=== PATIENT | male | born 1990 | race African-American/Black ===

== ENCOUNTER 2016-04-26 06:26 | Emergency (ER) | payer BC ==
[~2016-04-26] VITALS: Ht 177.8 cm; Wt 74.0 kg
[~2016-04-26 06:26] MED LIST: BACT2OIN TOP; CEPH500C3 PO; IBUP800 PO
[2016-04-26 06:28] VITALS: BP 129/73; PULSE 58; RESP 16; TEMP 97.7; O2SAT 99
[2016-04-26] MEDS ORDERED: CEPH-460 PO (07:14)
[2016-04-26] MEDS ORDERED: IBUP800T23 PO (07:14)
[2016-04-26] MEDS ORDERED: BACT800T5 PO (07:14)
--- NOTE | 2016-04-26 07:14 | PD ---
HPI Chief Complaint: Pain: Acute or Chronic Time Seen by Provider: 07:11 Travel History International Travel<30 days: No Contact w/Intl Traveler<30days: No Traveled to known affect area: No History of Present Illness HPI 26-year-old male presents to the emergency Department with complaint of right middle finger pain 2 weeks with worsening over the last 3 days and right heel pain 3 weeks. Denies injury. Denies paresthesias, loss of sensation, decreased range of motion, decreased strength to all extremities. Denies fever , chills, nausea, vomiting. Has tried taking Tylenol with no relief. Reports having a buildup of skin to his heel that cracked 3 weeks ago and is continuing to be painful. He has tried going to salon to have skin removed but it was painful. Heel pain is aggravated with walking. Finger pain is aggravated with palpation. Finger pain is to the distal aspect just below the nail bed. No known relieving factors. No known allergies. Denies significant past medical history. Does not have a primary care provider. No other modifying factors or associated signs and symptoms. PFSH Past Medical History Medical History: Denies Significant Hx Blood Disorders: No Diminished Hearing: No Immunizations Current: No Past Surgical History Appendectomy: Yes Social History Alcohol Use: No Tobacco Use: No Substance Use: No Allergies-Medications (Allergen,Severity, Reaction): Coded Allergies: No Known Allergies (Verified , 04/26/16) Reported Meds & Prescriptions Reported Meds & Active Scripts Active Ibuprofen 800 Mg Tab 800 Mg PO Q6HR PRN Bactrim DS (Sulfamethoxazole-Trimethoprim) 800-160 Mg Tab 1 Tab PO BID 10 Days Keflex (Cephalexin) 500 Mg Cap 500 Mg PO Q6H 10 Days Review of Systems Except as stated in HPI: all other systems reviewed are Neg Physical Exam Narrative GENERAL: Well-nourished, well-developed male patient, in no acute distress SKIN: Warm and dry. Distal aspect of right third finger with mild edema and tenderness on palpation just below the nail bed; there is no fluctuance; mild warmth to touch; mild erythema; less than 3 second cap refill; sensory intact; finger with full range of motion and good opposition. Right heel with large callus that is cracked without drainage or bleeding; without erythema, edema; right foot with sensory intact and full range of motion and 2+ pedal pulses. HEAD: Atraumatic. Normocephalic. EYES: Pupils equal and round. No scleral icterus. No injection or drainage. ENT: Mucosa pink and moist. Airway patent. NECK: Trachea midline. CARDIOVASCULAR: Regular rate. RESPIRATORY: No accessory muscle use. GASTROINTESTINAL: Flat. MUSCULOSKELETAL: No obvious deformities. No clubbing. No cyanosis. No edema. NEUROLOGICAL: Awake and alert. Oriented 3. No obvious cranial nerve deficits. Motor grossly within normal limits. Normal speech. PSYCHIATRIC: Appropriate mood and affect; insight and judgment normal. Data Data Last Documented VS Vital Signs Date Time Temp Pulse Resp B/P Pulse Ox O2 Delivery O2 Flow Rate FiO2 04/26/16 06:28 97.7 58 16 129/73 99 Room Air Orders Ibuprofen (Motrin) (04/26/16 07:15) [facility] Medical Decision Making Medical Screen Exam Complete: Yes Emergency Medical Condition: Yes Medical Record Reviewed: Yes Differential Diagnosis Paronychia, felon, callus, heel spur Narrative Course 26-year-old male physical exam consistent with a possible paronychia to the right third digit and a callus to the right heel. Patient is afebrile. He denies fever, chills, nausea, vomiting. The paronychia is without fluctuance and with mild edema and erythema. The callus is cracked and without signs of infection. Ibuprofen administered in the ER. Instructed patient to follow up with podiatry. Keflex, Bactrim, ibuprofen prescribed for home. Patient is medically cleared and stable for discharge. Discussed reasons to return to the emergency department. Instructed patient to follow up with primary care provider. Patient agrees with treatment plan. The patients vital signs are stable and the patient is stable for outpatient follow-up and treatment. Patient discharged home, stable and in no acute distress. Diagnosis Primary Impression: Paronychia of finger of right hand Additional Impression: Callus of heel Referrals: [facility] Primary Care Physician Patient Instructions: General Instructions, Paronychia (ED) Additional Instructions: Complete full course of antibiotics Warm compresses to the affected area Keep area clean and dry Ibuprofen or Tylenol as directed and as needed for pain and inflammation Follow-up with primary care provider Return to emergency department immediately with worsening of symptoms Med/Other Pt SpecificInfo: Prescription(s) given Scripts Ibuprofen 800 Mg Few136 Mg PO Q6HR PRN (PAIN) #30 TAB Ref 0 Prov:Rassi,Poly K RADIOLOGY SPECIAL PROCEDURE TECH 04/26/16 Sulfamethoxazole-Trimethoprim (Bactrim DS)800-160 Mg Tab1 Tab PO BID 10 Days Ref 0 Prov:Poly Alvarez 04/26/16 Cephalexin (Keflex)500 Mg Pjd023 Mg PO Q6H 10 Days Ref 0 Prov:Poly Alvarez 04/26/16 Disposition: 01 DISCHARGE HOME Condition: Stable Poly Alvarez Apr 26, 2016 07:14
[2016-04-26] MEDS ORDERED: IBUPROFEN 800 MG TAB PO ONE (07:15)
== END 2016-04-26 07:54 | disposition home or self-care (01) ==
LOC: NEPB 06:26
DX: L03.011 Cellulitis of right finger (principal); L84 Corns and callosities
CPT/HCPCS: 99283